=== PATIENT | female | born 1970 | race Two or more races ===

== ENCOUNTER 2018-01-11 23:29 | Emergency (ER) | payer SELFPAY ==
[~2018-01-11] VITALS: Ht 160 cm; Wt 59.0 kg
[2018-01-12] VITALS: BP 130/80
[2018-01-12] MEDS ORDERED: LORazepam Inj 2mg/ml 1ml IV ONE
--- NOTE | 2018-01-12 00:25 | Emergency Room Report ---
History of Present Illness General Chief Complaint: General Complaint Source: Patient, Family Member Present Illness HPI Is a 47-year-old female with history of GERD. She presents with chief complaint of shortness of breath. Onset for last few hours. She was watching TV relaxing when it came on. [place] like she can't catch her breath. [place] numbness in her chest. No loss of consciousness. No fever or chills. No chest pain. Denies any other complaint. No history of anxiety. No calf tenderness. No family history of cardiac or DVT/PE. Allergies: Coded Allergies: No Known Allergies (Unverified , 01/11/18) Patient History Past Medical History: see triage record, old chart reviewed Past Surgical History: none Pertinent Family History: none Social History: Denies: smoking Now: No Immunizations: other Reviewed Nursing Documentation: PMH: Agreed; PSxH: Agreed Nursing Documentation-PMH Past Medical History: No Stated History Review of Systems Eye: Denies: eye pain, blurred vision ENT: Denies: ear pain, nose congestion, throat swelling Respiratory: Reports: shortness of breath; Denies: cough Cardiovascular: Denies: chest pain, palpitations Gastrointestinal: Denies: abdominal pain, diarrhea, nausea, vomiting Musculoskeletal: Denies: back pain, joint pain Skin: Denies: rash Neurological: Denies: headache, numbness Endocrine: Denies: increased thirst, increased urine Hematologic/Lymphatic: Denies: easy bruising All Other Systems: negative except mentioned in HPI Physical Exam Vital Signs Date Time Temp Pulse Resp B/P (MAP) Pulse Ox O2 Delivery O2 Flow Rate FiO2 01/11/18 23:37 98.4 94 16 130/80 98 Room Air 98.4 vitals normal Sp02 EP Interpretation: reviewed, normal General Appearance: well appearing, no apparent distress, alert Head: normocephalic, atraumatic Eyes: bilateral eye PERRL, bilateral eye EOMI ENT: hearing grossly normal, normal pharynx Neck: full range of motion, supple, no meningismus Respiratory: chest non-tender, lungs clear, normal breath sounds Cardiovascular #1: regular rate, rhythm, no murmur Gastrointestinal: normal bowel sounds, non tender, no mass, no organomegaly, no bruit, non-distended Musculoskeletal: back normal, gait/station normal, normal range of motion Neurologic: alert, oriented x3 Psychiatric: anxious Skin: warm/dry Medical Decision Making Diagnostic Impression: Primary Impression: GERD (gastroesophageal reflux disease) Qualified Codes: K21.9 - Gastro-esophageal reflux disease without esophagitis Additional Impression: Dyspnea Qualified Codes: R06.00 - Dyspnea, unspecified ER Course Patient with dyspnea. I suspect this probably secondary to her reflux problem. No evidence of ACS, PE, dissection to name a few. She felt better after Ativan. We'll discharge home. Lab Results Impression labs are normal EKG Diagnostic Results Rate: normal Rhythm: NSR ST Segments: no acute changes Rhythm Strip Diag. Results Rhythm Strip Time: 00:24 EP Interpretation: yes Rate: 75 Rhythm: NSR, no PVC's, no ectopy Chest X-Ray Diagnostic Results Chest X-Ray Diagnostic Results : Chest X-Ray Ordered: Yes # of Views/Limited/Complete: 1 View Indication: Shortness of Breath EP Interpretation: Yes Interpretation: no consolidation, no effusion, no pneumothorax, no acute cardiopulmonary disease Impression: No acute disease Electronically Signed by: Rajan Fuentes MD Last Vital Signs Date Time Temp Pulse Resp B/P (MAP) Pulse Ox O2 Delivery O2 Flow Rate FiO2 01/11/18 23:37 98.4 94 16 130/80 98 Room Air 98.4 Status: improved Disposition: HOME, SELF-CARE Condition: Stable Referrals: NOT CHOSEN LANCE/,REFERRING (PCP) Additional Instructions: Follow-up with your doctor in 7 days. Return if symptom worsen. RAJAN FUENTES M.D. Jan 12, 2018 00:25
[2018-01-12 00:36] LABS: BASOPHILS % (AUTO) 0.6 % (0.0-2.0); EOSINOPHILS % (AUTO) 0.6 % (0.0-3.0); HEMATOCRIT 39.8 % (37.0-47.0); HEMOGLOBIN 13.5 G/DL (12.0-16.0); LYMPHOCYTES % (AUTO) 31.6 % (20.0-45.0); MEAN CORPUSCULAR VOLUME 88 FL (80-99); MONOCYTES % (AUTO) 6.7 % (1.0-10.0); NEUTROPHILS % (AUTO) 60.4 % (45.0-75.0); PLATELET COUNT 288 K/UL (150-450); RED BLOOD COUNT 4.51 M/UL (4.20-5.40); RED CELL DISTRIBUTION WIDTH 10.9 % (11.6-14.8); WHITE BLOOD COUNT 13.6 K/UL (4.8-10.8)
[2018-01-12 00:46] LABS: ANION GAP 8 mmol/L (5-15); BLOOD UREA NITROGEN 19 mg/dL (7-18); CALCIUM 9.1 MG/DL (8.5-10.1); CARBON DIOXIDE 27 MMOL/L (21-32); CHLORIDE 102 MMOL/L (98-107); CREATININE 0.9 MG/DL (0.55-1.30); POTASSIUM 3.2 MMOL/L (3.5-5.1); SODIUM 137 MMOL/L (136-145)
[2018-01-12 00:59] LABS: ALANINE AMINOTRANSFERASE 17 U/L (12-78); ALBUMIN 3.6 G/DL (3.4-5.0); ALKALINE PHOSPHATASE 72 U/L (46-116); ASPARTATE AMINO TRANSFERASE 13 U/L (15-37); BILIRUBIN,TOTAL 0.3 MG/DL (0.2-1.0); CKMB 0.7 NG/ML (0.0-3.6); CREATINE KINASE 81 U/L (26-308)
[2018-01-12 01:00] VITALS: BP 128/78
--- NOTE | 2018-01-12 01:20 | Diagnostic Imaging Report ---
EXAM: XR Chest, 1 View CLINICAL HISTORY: CP TECHNIQUE: Frontal view of the chest. COMPARISON: No relevant prior studies available. FINDINGS: Lungs: Unremarkable. No consolidation. Pleural space: Unremarkable. No pneumothorax. Heart: Unremarkable. No cardiomegaly. Mediastinum: Unremarkable. Bones/joints: Unremarkable. IMPRESSION: No radiographic evidence of acute pulmonary disease.
[2018-01-12] MEDS ORDERED: REGLAN10 MG ORAL (01:29)
[2018-01-12] MEDS ORDERED: Lidocaine 2% Visc 15ml soln ORAL ONE (01:30)
[2018-01-12] MEDS ORDERED: Pantoprazole Inj IVP ONE (01:30)
[2018-01-12] MEDS ORDERED: Mylanta II UD 30ml ORAL ONE (01:30)
[2018-01-12 01:42] VITALS: BP 125/68
[2018-01-12 02:00] VITALS: BP 125/68
--- NOTE | 2018-01-18 00:49 | Cardiology Report ---
APPROVED REPORT EKG Measurement Heart [id number] Normal sinus rhythm Normal ECG
== END 2018-01-12 02:00 | disposition home or self-care (01) ==
LOC: EMR 23:49
DX: K21.9 Gastro-esophageal reflux disease without esophagitis (principal); R06.00 Dyspnea, unspecified
CPT/HCPCS: 36415; 71045; 80053; 82550; 82553; 84484; 85025; 85379; 93005; 96374; 96375; 99284; C9113

== ENCOUNTER 2018-01-14 12:05 | Emergency (ER) | payer SELFPAY ==
[~2018-01-14] VITALS: Ht 160 cm; Wt 58.1 kg
[~2018-01-14 12:05] MED LIST: REGLAN10 MG ORAL
[2018-01-14] MEDS ORDERED: PANTOPRAZOLE SO40 MG ORAL (12:15)
[2018-01-14 12:29] VITALS: BP 124/76
[2018-01-14] MEDS ORDERED: Lidocaine 2% Visc 15ml soln ORAL ONE ×2 (13:15→14:15)
[2018-01-14] MEDS ORDERED: Mylanta II UD 30ml ORAL ONE (13:15)
[2018-01-14] MEDS ORDERED: Norco 5mg/325mg tab ORAL ONE (14:15)
--- NOTE | 2018-01-14 14:21 | Emergency Room Report ---
History of Present Illness General Chief Complaint: General Complaint Source: Patient, Family Member Present Illness HPI 47 YO Female presents to the ED c/O persistent Pain, in the chest with acid reflux. Patient reports that she was seen here several days ago and prescribed a medication that is not helping her symptoms. Patient reports she feels acid coming up mostly at night and she has a chronic cough at night. Patient denies fevers or chills or recent ill contacts. Patient produces a copy of recent testing results performed in [facility] that show positive for H pylori. This was received just prior to the patient coming to the [place] to visit. She denies history of high blood pressure, high cholesterol or cardiac history. reports decrease in food intake as eating exacerbates her symptoms. Patient reports time she feels as though it's hard to breathe. She denies taking estrogen products. Denies Palpitations, LOC, AMS, dizziness, Changes in Vision , Sensation, paresthesias, or a sudden severe headache. Allergies: Coded Allergies: PENICILLINS (Verified Allergy, Unknown, 01/14/18) Patient History Past Medical History: see triage record, GERD Past Surgical History: none Pertinent Family History: none Last Menstrual Period: menopause Now: No Reviewed Nursing Documentation: PMH: Agreed; PSxH: Agreed Nursing Documentation-PMH Past Medical History: No History, Except For Review of Systems All Other Systems: negative except mentioned in HPI Physical Exam Vital Signs Date Time Temp Pulse Resp B/P (MAP) Pulse Ox O2 Delivery O2 Flow Rate FiO2 01/14/18 12:11 98.5 96 18 124/76 95 Room Air 98.4 Sp02 EP Interpretation: reviewed, normal General Appearance: well appearing, no apparent distress - pt. intermittently tearful, alert, GCS 15, non-toxic Head: normocephalic, atraumatic Eyes: bilateral eye normal inspection, bilateral eye PERRL ENT: hearing grossly normal, normal voice Neck: full range of motion Respiratory: chest non-tender, lungs clear, normal breath sounds, no rhonchi, no respiratory distress, no wheezing, speaking full sentences Cardiovascular #1: regular rate, rhythm, no edema, normal capillary refill Gastrointestinal: non tender, soft Musculoskeletal: back normal, gait/station normal, normal range of motion, non- tender Neurologic: alert, oriented x3, responsive, motor strength/tone normal, sensory intact, normal gait, speech normal, grossly normal Psychiatric: judgement/insight normal Skin: normal color, no rash, warm/dry, well hydrated Lymphatic: no adenopathy Medical Decision Making PA Attestation Dr. forrest is my supervising Physician whom patient management has been discussed with. Diagnostic Impression: Primary Impression: GERD with esophagitis Additional Impression: Nonspecific chest pain ER Course 47 YO Female presents to the ED c/O persistent Pain, in the chest with acid reflux. Patient reports that she was seen here several days ago and prescribed a medication that is not helping her symptoms. Patient reports she feels acid coming up mostly at night and she has a chronic cough at night. Patient denies fevers or chills or recent ill contacts. Patient produces a copy of recent testing results performed in [facility] that show positive for H pylori. This was received just prior to the patient coming to the [place] to visit. She denies history of high blood pressure, high cholesterol or cardiac history. reports decrease in food intake as eating exacerbates her symptoms. Patient reports time she feels as though it's hard to breathe. She denies taking estrogen products. Denies Palpitations, LOC, AMS, dizziness, Changes in Vision , Sensation, paresthesias, or a sudden severe headache. Ddx considered but are not limited to HI, pneumonia, contusion, costochondritis , PE, ACS, Shoulder strain, Chest wall contusion. aortic dissection. Vital signs: are WNL, pt. is afebrile H&PE are most consistent with persistent Acid reflux with diagnostics performed recently showing evidence of H.Pylori. ORDERS: - EK NSR -Labs performed 5 days ago were normal, this pt. does not have cardiac RF's and I do not feel another cardiac work up will change my management of this patient. ED INTERVENTIONS: - Gi Cocktail -Pepcid PO -[place] PO -I do not identify an emergent condition at this time. With current presentation , pt. is stable for close outpatient follow up and conservative treatment. D/ w pt. to return promptly to ED with worsening or new symptoms.- Pt. (and or responsible republican) verbalizes' understanding and agreement with proposed treatment plan.proposed treatment plan. DISCHARGE: At this time pt. is stable for d/c to home. Will provide printed patient care instructions, and any necessary prescriptions. Care plan and follow up instructions have been discussed with the patient prior to discharge. EKG Diagnostic Results EP Interpretation: [place] Rate: normal - 86 Rhythm: NSR ASA given to the pt in ED: No PA Scribe Text This Interpretation was scribed by SRINATH Elam. Last Vital Signs Date Time Temp Pulse Resp B/P (MAP) Pulse Ox O2 Delivery O2 Flow Rate FiO2 01/14/18 14:16 98.4 01/14/18 12:29 96 18 124/76 95 Room Air Disposition: HOME, SELF-CARE Condition: Stable Scripts Metronidazole* (FLAGYL*) 500 Mg Tablet 500 MG ORAL BID for 14 Days, #28 TAB 0 Refills Prov: Sarita Elam 01/14/18 Clarithromycin* (CLARITHROMYCIN*) 500 Mg Tablet 500 MG PO Q12HR for 14 Days, #28 TAB Prov: Sarita Elam 01/14/18 Lidocaine HCl 2% Viscous (Lidocaine HCl 2% Viscous) 100 Ml Solution 15 ML ORAL QID, #200 ML Prov: Sarita Elam 01/14/18 Ranitidine Hcl* (ZANTAC*) 150 Mg Tablet 150 MG ORAL TWICE A DAY, #24 TAB Prov: Sarita Elam 01/14/18 Omeprazole Magnesium (PRILOSEC OTC) 20 Mg Tablet.dr 20 MG ORAL BID, #24 TAB Prov: Sarita Elam 01/14/18 Referrals: NOT CHOSEN IPA/MD,REFERRING (PCP) Patient Instructions: Food Choices for Gastroesophageal Reflux Disease, Adult, [id number], Gastroesophageal Reflux Disease, Adult Additional Instructions: Take medications as directed. Follow up with a Primary Care Provider in 3-5 days, For a GI Specialist referral --Please review list of primary care clinics, if you do not already have a primary care provider Return sooner to ED if new symptoms occur, or current symptoms become worse. - Please note that this Emergency Department Report was dictated using [id number] technician technology software, occasionally this can lead to erroneous entry secondary to interpretation by the dictation equipment. Sarita Elam Jan 14, 2018 14:21
[2018-01-14] MEDS ORDERED: ZANTAC150 MG ORAL (14:42)
[2018-01-14] MEDS ORDERED: PRILOSEC OTC20 MG ORAL (14:42)
[2018-01-14] MEDS ORDERED: LIDOCAINE VISC100 ML ORAL (14:42)
[2018-01-14 15:01] VITALS: BP 155/88
[2018-01-14] MEDS ORDERED: METRONIDAZOLE500 MG ORAL (15:07)
[2018-01-14] MEDS ORDERED: CLARITHROMYCIN500 MG PO (15:07)
[2018-01-14 15:12] VITALS: BP 155/88
== END 2018-01-14 15:13 | disposition home or self-care (01) ==
LOC: EMR 13:16
DX: K21.0 Gastro-esophageal reflux disease with esophagitis (principal); R07.9 Chest pain, unspecified; R05 Cough; Z88.0 Allergy status to penicillin
CPT/HCPCS: 93005; 99284